=== PATIENT | female | born 1990 | race Caucasian/White ===

== ENCOUNTER 2018-03-08 18:49 | Emergency (ER) | payer OTHER ==
[~2018-03-08] VITALS: Ht 170.1 cm; Wt 90.7 kg
[~2018-03-08 18:49] MED LIST: 'PARAFON FORTE500 M1 PO; ANUSOL HC30 GM PO; BACTRIM DS 8001 TA1 PO; BACTRIM DS 8001 TAB PO; DIFLUCAN150 MG PO; FLEXERIL10 MG PO; HYDROCODONE BIT1 T11 PO; MACROBID100 M1 PO; MOTRIN800 MG PO; NAPROSYN500 MG PO; PYRIDIUM200 M1 PO; PYRIDIUM200 MG PO; SEPTRA DS 800 M1 TAB PO; VICODIN 500 MG-1 TAB PO; ZOFRAN4 MG PO; Zofran4 MG PO
[2018-03-08] MEDS ORDERED: CITALOPRAM HYDR40 MG PO (18:56)
[2018-03-08] MEDS ORDERED: TOPIRAMATE50 M2 PO (18:56)
[2018-03-08 19:38] LABS: BASO # 0.1 10*3/uL (0.0-0.1); BASO % 0.4 % (0.0-1.0); EOS # 0.3 10*3/uL (0.0-0.4); EOS % 2.3 % (1.0-4.0); HEMATOCRIT 41.3 % (37.0-47.0); HEMOGLOBIN 14.1 g/dl (12.0-16.0); LYMPH # 1.9 10*3/uL (1.3-4.4); LYMPH % 15.4 % (27.0-41.0); MEAN CELL VOLUME 89.6 fl (81.0-99.0); MEAN CORPUSCULAR HGB 30.6 pg (27.0-31.0); MEAN CORPUSCULAR HGB CONC 34.1 g/dl (33.0-37.0); MEAN PLATELET VOLUME 12.4 fl (9.6-12.3); MONO # 0.8 10*3/uL (0.1-1.0); MONO % 6.6 % (3.0-9.0); NEUT # 9.4 10*3/uL (2.3-7.9); NEUT % 75.1 % (47.0-73.0); PLATELET COUNT AUTOMATED 202 10*3/uL (130-400); RED BLOOD COUNT 4.61 10*6/uL (4.10-5.10); RED CELL DISTRI WIDTH 12.9 % (0-14.5); WHITE BLOOD COUNT 12.5 10*3/uL (4.8-10.8)
[2018-03-08 19:53] LABS: ALBUMIN 3.6 gm/dl (3.1-4.5); ALKALINE PHOSPHATASE 85 U/L (45-117); BUN 5 mg/dl (7-24); CHLORIDE 107 mmol/L (98-107); CREATININE 0.76 mg/dL (0.55-1.02); POTASSIUM 3.8 mmol/L (3.5-5.1); SGOT/AST 15 IU/L (3-35); SGPT/ALT 23 U/L (12-78); SODIUM 139 mmol/L (136-145); TOTAL PROTEIN 8.4 gm/dL (6.4-8.2)
[2018-03-08] MEDS ORDERED: AVPAK AZITHROM250 MG PO (20:34)
[2018-03-08] MEDS ORDERED: PROAIR HFA8.5 GM INH (20:34)
[2018-03-08] MEDS ORDERED: PREDNISONE50 MG PO (20:34)
== END 2018-03-08 21:29 | disposition home or self-care (01) ==
LOC: ED 18:49
PROVIDERS: Nurse Practitioner Family
DX: J20.9 Acute bronchitis, unspecified (principal); J06.9 Acute upper respiratory infection, unspecified; F17.200 Nicotine dependence, unspecified, uncomplicated; Z79.899 Other long term (current) drug therapy

== ENCOUNTER → 2018-07-05 | Outpatient (CLI) | payer OTHER ==
[~2018-07-05] MED LIST changes: +AVPAK AZITHROM250 MG PO; +CITALOPRAM HYDR40 MG PO; +PREDNISONE50 MG PO; +PROAIR HFA8.5 GM INH; +TOPIRAMATE50 M2 PO
== END | disposition home or self-care (01) ==
LOC: LAB 08:16 → MAMMO 09:00
DX: N60.11 Diffuse cystic mastopathy of right breast (principal); N60.12 Diffuse cystic mastopathy of left breast; E78.00 Pure hypercholesterolemia, unspecified; E55.9 Vitamin D deficiency, unspecified; R53.83 Other fatigue; N91.2 Amenorrhea, unspecified; F41.9 Anxiety disorder, unspecified

== ENCOUNTER → 2019-08-07 | Outpatient (CLI) | payer OTHER ==
[2019-08-07 17:56] LABS: HEMATOCRIT 44.4 % (37.0-47.0); HEMOGLOBIN 14.4 g/dl (12.0-16.0); MEAN CELL VOLUME 93.3 fl (81.0-99.0); MEAN CORPUSCULAR HGB 30.3 pg (27.0-31.0); MEAN CORPUSCULAR HGB CONC 32.4 g/dl (33.0-37.0); MEAN PLATELET VOLUME 12.5 fl (9.6-12.3); RED BLOOD COUNT 4.76 10*6/uL (4.10-5.10); RED CELL DISTRI WIDTH 12.6 % (0-14.5); WHITE BLOOD COUNT 9.4 10*3/uL (4.8-10.8)
[2019-08-07 18:30] LABS: ALBUMIN 3.6 gm/dl (3.1-4.5); ALKALINE PHOSPHATASE 77 U/L (45-117); BUN 12 mg/dl (7-24); CHLORIDE 106 mmol/L (98-107); CREATININE 0.91 mg/dL (0.55-1.02); SGOT/AST 18 IU/L (3-35); SGPT/ALT 24 U/L (12-78); SODIUM 137 mmol/L (136-145); TOTAL PROTEIN 8.1 gm/dL (6.4-8.2)
[2019-08-07 18:38] LABS: BETA-HCG, QUANT < 1.0 mIU/mL (1-3)
== END | disposition home or self-care (01) ==
LOC: LAB 17:29
PROVIDERS: Family Medicine
DX: N92.6 Irregular menstruation, unspecified (principal); R53.83 Other fatigue

== ENCOUNTER 2020-12-12 11:12 | Emergency (ER) | payer OTHER ==
[~2020-12-12] VITALS: Ht 170.1 cm; Wt 83.9 kg
[2020-12-12] MEDS ORDERED: CEPHALEXIN500 M1 PO (11:40)
[2020-12-12] MEDS ORDERED: HYDROCODONE-AC1 EAC1 PO (11:40)
[2020-12-12] MEDS ORDERED: SEPTDS PO (11:40)
== END 2020-12-12 11:59 | disposition home or self-care (01) ==
LOC: ED 11:12
DX: L73.2 Hidradenitis suppurativa (principal); Z79.899 Other long term (current) drug therapy; Z79.2 Long term (current) use of antibiotics

== ENCOUNTER → 2020-12-23 | Outpatient (CLI) | payer OTHER ==
[~2020-12-23] MED LIST changes: +CEPHALEXIN500 M1 PO; +HYDROCODONE-AC1 EAC1 PO; +NAPROXEN250 MG PO; +SEPTDS PO
== END ==
LOC: WOUNDCARE 02:48
PROVIDERS: ATTEND Surgery
DX: L02.214 Cutaneous abscess of groin (principal); L66.4 Folliculitis ulerythematosa reticulata; L73.2 Hidradenitis suppurativa; Z79.899 Other long term (current) drug therapy

== ENCOUNTER 2020-12-29 20:42 | Emergency (ER) | payer OTHER ==
[~2020-12-29] VITALS: Wt 86.2 kg
[~2020-12-29 20:42] MED LIST changes: -NAPROXEN250 MG PO
[2020-12-29] MEDS ORDERED: NAPROXEN250 MG PO (22:25)
== END 2020-12-29 22:34 | disposition home or self-care (01) ==
LOC: ED 20:42
DX: S93.602A Unspecified sprain of left foot, initial encounter (principal); Z79.2 Long term (current) use of antibiotics; Z79.899 Other long term (current) drug therapy; X50.1XXA Overexertion from prolonged static or awkward postures, initial encounter; Y93.01 Activity, walking, marching and hiking; Y92.89 Other specified places as the place of occurrence of the external cause; Y99.8 Other external cause status